=== PATIENT | female | born 1995 | race Caucasian/White ===

== ENCOUNTER 2024-03-12 15:36 | Outpatient (CLI) | payer OTHER, SELFPAY ==
--- NOTE | ~2024-03-12 | US_ITS ---
EXAMINATION: US OB <= 14 weeks fetus DATE: 03/12/2024 16:35 INDICATION: Amenorrhea TECHNIQUE: Real-time pelvic ultrasound utilizing both a transvaginal and transabdominal probe was pe rformed. The interpreting radiologist was not present for the study. COMPARISON: None. FINDINGS: The uterus measures 14.0 x 9.6 x 9.5 cm. There is an intrauterine gestational sac. A yolk sac and fe sindy pole are identified. The crown rump length measures 5.7, which correlates with an estimated gesta tional age of 12 weeks and 2 days. heart motion is identified measuring 161 beats per minute (b pm) by M-mode Doppler. The right ovary measures 2.7 x 1.3 x 1.8 cm. The left ovary measures 3.6 x 1.9 x 2.8 cm. There is no free fluid in the pelvis. IMPRESSION: 1. Single living fetus with heart rate of 161 bpm. 2. Gestational age by ultrasound of 12 weeks 2 day(s) +/- 1 week and 1 day with ultrasound estimated date of delivery (EDUARDO) of 09/22/2024. Reviewed, dictated and finalized at location A. IMPRESSION: 1. Single living fetus with heart rate of 161 bpm. 2. Gestational age by ultrasound of 12 weeks 2 day(s) +/- 1 week and 1 day wit h ultrasound estimated date of delivery (EDUARDO) of 09/22/2024.
== END 2024-03-12 15:37 | disposition home or self-care (01) ==
PROVIDERS: PCP Internal Medicine; Visit Provider Student in an Organized Health Care Education/Training Program
DX: N94.89 Other specified conditions associated with female genital organs and menstrual cycle (principal); Z3A.12 12 weeks gestation of pregnancy
CPT/HCPCS: 76801

== ENCOUNTER 2024-04-30 15:07 | Outpatient (CLI) | payer OTHER, SELFPAY ==
--- NOTE | ~2024-04-30 | US_ITS ---
EXAMINATION: US_OBFEMATADD_US DATE: 04/30/2024 16:43 INDICATION: . anatomic survey. TECHNIQUE: Real-time ultrasound of the pelvis was performed. COMPARISON: Ultrasound 03/12/2024 FINDINGS: There is a single living fetus in vertex presentation. The placenta is anterior, 2.0 cm from the cer vix. heart rate is 147 beats per minute (bpm). The amniotic fluid index is 13.8 cm, which is no rmal. The following biometric data were obtained: Biparietal diameter (BPD): 4.3 cm; head circumference (HC): 16.0 cm; abdominal circumference (AC): 14 .4 cm; femur length (FL): 3.0 cm. These measurements are concordant. Estimated weight is 294 g +/- 44 g, which correlates with the 56th percentile when 09/22/24 is u sed as estimated date of delivery. As single measurements, these parameters are each equal to the following estimated gestational ages: BPD: 18 weeks 6 days. HC: 18 weeks 6 days. AC: 19 weeks 5 days. FL: 19 weeks 3 days. estimated gestational age based solely on measurements from this exam is 19 weeks 2 days +/- 1 weeks 2 days. The cerebral ventricles, cerebellum, cisterna magna, nuchal fold, and spine are normal. There is an i ntracardiac echogenic focus. The diaphragm, stomach, kidneys, and bladder are normal. There are two u mbilical arteries to yield a 3-vessel cord. The cord insertion is normal. IMPRESSION: 1. Single living fetus in vertex presentation. 2. Estimated weight is 294 g +/- 44 g, which correlates with the 56th percentile when 09/22/24 is used as estimated date of delivery. This date was set by ultrasound on 03/12/2024. 3. Intracardiac echogenic focus. 4. Placenta 2.0 cm from the cervix, which is borderline for low-lying placenta. Reviewed, dictated and finalized at location A. LLMENT SPECIALIST IMPRESSION: 1. Single living fetus in vertex presentation. 2. Estimated weight is 294 g +/- 44 g, which correlates with the 56th rcentile when 09/22/24 is used as estimated date of delivery. This date was set by ultrasound on 03/12/2024. 3. Intracardiac echogenic focus. 4. Placenta 2.0 cm from the cervix, which is borderline for low-lying placenta.
== END 2024-04-30 15:08 | disposition home or self-care (01) ==
LOC: ANHIMG 15:09
PROVIDERS: Visit Provider Student in an Organized Health Care Education/Training Program
DX: N94.89 Other specified conditions associated with female genital organs and menstrual cycle (principal)
CPT/HCPCS: 76810

== ENCOUNTER 2024-08-10 15:05 | Outpatient (CLI) | payer OTHER, SELFPAY ==
--- NOTE | ~2024-08-10 | US_ITS ---
EXAM EXAMINATION: US OB follow up DATE: 08/10/2024 22:21 CDT INDICATION: Excessive growth COMPARISON: 04/30/2024 TECHNIQUE: Real-time transabdominal obstetric ultrasound. FINDINGS: 4 para 2 AB 1 Estimated date of delivery by prior ultrasound is 09/22/2024 Gestational age by estimated date of delivery is 33 weeks and 6 days There is a single intrauterine gestation in vertex presentation. The placenta is anterior, approximately 6 cm from the cervix. cardiac activity and movement is noted with a heart rate of 134 beats per minute. The following biometric data were obtained: Biparietal diameter (BPD): 8.5 cm; head circumference (HC): 32.1 cm; abdominal circumference (AC): 31.3 cm; femur length (FL): 6.5 cm. These measurements are concordant. Estimated weight is 2496 g +/- 374 g, which correlates with the 69th percentile when 09/16/2024 i s used as estimated date of delivery. As single measurements, these parameters are each equal to the following estimated gestational ages: BPD: 34 weeks 2 days. HC: 36 weeks 1 day. AC: 35 weeks 1 day. FL: 33 weeks 2 days. estimated gestational age based solely on measurements from this exam is 34 weeks 5 days +/- 2 weeks 3 days. IMPRESSION: Single intrauterine gestation in vertex presentation with cardiac activity identified. Estimated weight correlates with the 69th percentile when 09/16/2024 is used as estimated date of delivery Reviewed, dictated and finalized at location A. IMPRESSION: Single intrauterine gestation in vertex presentation with cardiac activit y identified. Estimated weight correlates with the 69th percentile when 09/16/2024 is use d as estimated date of delivery
--- OUTSIDE RECORDS SUMMARY | 2024-08-10 16:41 | XMS_ITS | Clinical Summary ---
Author Organization [address] Address [address] [facility] [place] [address] Care Team Providers Care Mortician Helper Name Role Phone Palmira Lai MD Primary Care Provider [phone] Allergies No known active allergies Medications No known medications Active Problems No known active problems Social History Tobacco Use Types Packs/Day Years Used Date Smoking Tobacco: Never Assessed Comments Unknown Sex and Gender Information Value Date Recorded Sex Assigned at Not on file Legal Sex Female 10:04 PM CDT Gender Identity Not on file Sexual Orientation Not on file Obstetrics History Last Filed Vital Signs Vital Sign Reading Time Taken Comments Blood Pressure 124/62 09/01/2023 3:06 PM CDT Pulse 110 09/01/2023 3:06 PM CDT Temperature 37.2 C (98.9 F) 09/01/2023 3:06 PM CDT Respiratory Rate 18 09/01/2023 3:06 PM CDT Oxygen Saturation 98% 09/01/2023 3:06 PM CDT Inhaled Oxygen Concentration - - Weight 79.8 kg (176 lb) 09/01/2023 3:06 PM CDT Height 162.6 cm (5' 4 ) 09/01/2023 3:06 PM CDT Body Mass Index 30.21 09/01/2023 3:06 PM CDT Plan of Treatment Health Maintenance Due Date Last Done Comments Cervical Cancer Screening 1996 Depression Screening 1996 Hepatitis C Screening 1996 DTaP/Tdap/Td Vaccine (1 - Tdap) 01/09/2007 Varicella Vaccines (1 of 2 - 13+ 2-dose series) 01/09/2009 Hepatitis B Screening 01/09/2014 Regular Well Visit/Exam 18-64 01/09/2014 Influenza Vaccine (#1) 2024 HPV Vaccines Aged Out No longer eligi ble based on patient's age to complete this topic Pneumococcal vaccine <65 Aged Out No longer eligible based on patient's age to complete this topic Insurance [employer] OOS Care Teams Mortician Helper Relationship Specialty Start Date End Date Palmira Lai MD [address] [place] [address] PCP - General Internal Medicine 09/01/23
--- OUTSIDE RECORDS SUMMARY | 2024-08-10 16:41 | XMS_ITS | Referral Summary ---
Author Organization [address] Address [address] [place] [address] [place] [address] Care Team Providers Care Vp Genetic Name Role Phone Palmira Lai MD Primary Care Provider [phone] Allergies No known active allergies Medications No known medications Active Problems No known active problems Social History Tobacco Use Types Packs/Day Years Used Date Smoking Tobacco: Never Assessed Comments Unknown Sex and Gender Information Value Date Recorded Sex Assigned at Not on file Legal Sex Female 10:04 PM CDT Gender Identity Not on file Sexual Orientation Not on file Last Filed Vital Signs Vital Sign Reading [...] 09/01/2023 3:06 PM CDT Plan of Treatment Not on file Insurance [email or web address] OOS Member Subscriber Plan / Payer (Ef fective 2023-Present) Name:John Naayk Relation to Subscriber:Spouse Name:Dieudonne Nayak Date of :1992 (Home) Address: [address] [place] [address] Payer ID:[id number] (NAIC) Type:BC ALLIANCE Address: [facility] [id number] [id number] Care Teams Vp Genetic Relationship Specialty Start Date End Date Palmira Lai MD [address] [place] [address] PCP - General Internal Medicine 09/01/23
--- OUTSIDE RECORDS SUMMARY | 2024-08-10 16:41 | XMS_ITS | Clinical Summary ---
Author Organization [facility] Address [address] [facility] [place] [address] Care Team Providers Care Store Keeper Name Role Phone Palmira Lai MD Primary Care Provider [phone] Source Comments [facility]-owned [facility] and Associated Physician Practices is amultiple site organization consisting of ambulatory clinics and hospital sitesin [place], [place], [place] and [place]. This disclosure is being madepursuant to the Care Everywhere program and may not contain all information available regarding this patient. Last updated 18.[facility] Allergies No known active allergies Medications * Be aware that medications may not be up to date on this document. Alwaysverify current medications with the patient. Medication Sig Dispensed Refills Start Date End Date Status norethindrone-ethinyl estradiol (NORTREL 135, 21,) 1-35 MG-MCG tablet Take 1 tablet by mouth once daily Active escitalopram (LEXAPRO) 5 MG tablet Take 5 mg by mouth once daily Active Active Problems Estimated Date of Delivery Comme nts Yes 09/22/2024 Based on Patient Reported No known active problems Encounters Date Type Department Care Team Description 06/08/2024 2:30 PM SR. PAYROLL MANAGER - 06/08/2024 11:59 PM SR. PAYROLL MANAGER Hospital Encounter [facility] [address] [place] [address] [id number] Clarissa Judge MD Discharge Disposition: Home or Self Care 05/18/2024 Telephone [facility] [address] [place] [address] [phone] Wilcox, Digna M, RN Results (NIPT) from Last 3 Months Family History Medical History Relation Name Comments None Known Father None Known Mother Negative Family History Other Relation Name Status Comments Father Alive Mother Alive Other Social History Tobacco Use Types Packs/Day Years Used Date Smoking Tobacco: Never Smokeless Tobacco: Never Tobacco Cessation:Counseling Given: Not Answered Alcohol Use Standard Drinks/Week Comments No 0 (1 standard drink = 0.6 oz pur e alcohol) Estimated Date of Delivery Comme nts Yes 09/22/2024 Based on Patient Reported Sex and Gender Information Value Date Recorded Sex Assigned at Not on file Gender Identity Not on file Sexual Orientation Not on file Last Filed Vital Signs Vital Sign Reading Time Taken Comments Blood Pressure 120/81 10/08/2023 12:20 PM CDT Pulse 64 10/08/2023 12:20 PM CDT Temperature 36.4 C (97.6 F) 10/08/2023 12:20 PM CDT Respiratory Rate 18 04/29/2019 10:34 AM SR. PAYROLL MANAGER Oxygen Saturation 99% 10/08/2023 12:20 PM CDT Inhaled Oxygen Concentration - - Weight 78.5 kg (173 lb) 10/08/2023 12:20 PM CDT Height 162.6 cm (5' 4 ) 10/08/2023 12:20 PM CDT Body Mass Index 29.7 10/08/2023 12:20 PM CDT Plan of Treatment Health Maintenance Due Date Last Done Comments PAP SMEAR 1996 HIV SCREENING 01/09/2011 DTAP/TDAP/TD VACCINES (1 - Tdap) 01/09/2015 HEPATITIS B VACCINE (1 of 3 - 19+ 3-dose series) 01/09/2015 COVID-19 VACCINE ( - 2023-2 5 season) 2024 INFLUENZA VACCINE (#1) 2024 03/12/2020 DEPRESSION SCREENING 05/12/2024 OB-ONE HOUR GLUCOSE 06/16/2024 OB-TDAP CURRENT 06/23/2024 OB-RHOGAM INJECTION 06/30/2024 OB-GROUP B STREP SCREEN 08/18/2024 ZOSTER VACCINE (1 of 2) 01/09/2046 HEPATITIS C SCREENING Completed 07/16/2023 HIB VACCINE Aged Out No longer eligi ble based on patient's age to complete this topic HPV VACCINE Aged Out No longer eligi ble based on patient's age to complete this topic MENINGOCOCCAL (Group B) VACC INE SHARED DECISION-MAKING Aged Out No longer eligibl e based on patient's age to complete this topic MENINGOCOCCAL GROUPS A/C/Y/W VACCINE Aged Out No longer eligible b ased on patient's age to complete this topic PNEUMOCOCCAL VACCINE Aged Out No long er eligible based on patient's age to complete this topic Respiratory Syncytial Virus (RSV) Vaccine Pt: or over 60 yrs (No Doses Required) Completed Procedures Procedure Name Priority Date/Time Associated Diagnosis Comments SONOGRAM - COMPLETE Routine 06/08/2024 2:42 PM SR. PAYROLL MANAGER Fourth Encounter for follow-up ultrasound of anatomy Echogenic intracardiac focus of fetus on ultrasound Encounter for ultrasound to assess growth 24 weeks gestation of from Last 3 Months Results * SONOGRAM - COMPLETE (06/08/2024 2:42 PM SR. PAYROLL MANAGER) Linked Results Indication ======== Incomplete Anatomy Screen History ====== OB History 4. Para 2 [id number] 1. live . Gest. age 39 w + 0 d. Weight 3,220 g. Sex of child: female. Details: Vaginal delivery 2. missed 3. live . Gest. age 39 w + 0 d. Weight 3,311 g. Sex of child: female. Details: Vaginal delivery Lab Tests Test Date Result NIPT Low risk Maternal Assessment Physical Exam Height 165 cm, 5 ft 5 in. Initial weight 74 kg, 163 lb. Initial BMI 27.12 kg/m Method ====== Transabdominal ultrasound. View: Good view ========= Torres . Number of fetuses: 1 Dating ====== Date Details Gest. age EDUARDO Stated EDUARDO 24 w + 6 d 09/22/2024 U/S 06/08/2024 based upon AC, BPD, Femur, HC 25 w + 5 d 09/16/2024 Assigned dating based on stated EDUARDO, selected on 05/11/2024 24 w + 6 d 09/22/2024 General Evaluation Cardiac activity present. FHR 148 bpm. Presentation: cephalic Placenta: Placental site: anterior Amniotic fluid: Amount of AF: normal. MVP 6.6 cm Biometry BPD 61.9 mm 25w 1d 52% Hadlock HC 230.6 mm 25w 1d 37% Hadlock AC 222.7 mm 26w 5d 90% Hadlock Femur 47.7 mm 26w 0d 71% Hadlock Humerus 40.7 mm 24w 5d 34% Mauricio HC / AC 1.04 -/- Hadlock Weight Calculation: EFW 903 g 91% Hadlock EFW (lb,oz) 2 lb 0 oz EFW by Hadlock ([id number]) accelerated Growth Overview Exam date GA BPD (mm) HC (mm) AC (mm) FL (mm) HL (mm) EFW (g) 05/11/2024 20w 6d 49.6 56% 182.3 30% 160.9 55% 34.5 41% 31.2 29% 392 52% 06/08/2024 24w 6d 61.9 52% 230.6 37% 222.7 90% 47.7 71% 40.7 34% 903 91% Anatomy The following structures appear normal: Head / Neck Cranium. Heart / Thorax 4-chamber view. 9-wyoqmu-kbutuuv view. Abdomen Stomach. Kidneys. Bladder. The following structures were documented previously: Head / Neck Lateral ventricles. Choroid plexus. Midline falx. Cavum septi pellucidi. Cerebellum. Cisterna magna. Face Lips. Profile. Nose. Orbits. Heart / Thorax RVOT view. LVOT view. 3-vessel view. Situs. Aortic arch view. Bicaval view. Ductal arch view. Interventricular septum. Great vessels. Right lung. Left lung. Diaphragm. Abdomen Cord insertion. Genitals. Spine Cervical spine. Thoracic spine. Lumbar spine. Sacral spine. Extremities / Skeleton Arms. Hands. Legs. Feet. sex: male. Impression ========= Single, live, intrauterine at 24w 6d size appears accelerated Amniotic fluid volume: normal No major malformations were seen within the limitations of ultrasound Follow-up ======== Growth US in 4-6 weeks, or as clinically indicated. Correlate maternal glucose screening with growth. Coding ====== Procedures [id number]: US Preg Uterus Follow Up [place] PACS Anatomical Region Laterality Modality Other 06/08/2024 2:42 PM SR. PAYROLL MANAGER Rosendo Giordano MD [facility] ORDERABLES from Last 3 Months Care Teams Store Keeper Relationship Specialty Start Date End Date Palmira Lai MD [address] [facility] [address] [place] [id number] PCP - General Internal Medicine 07/22/23
== END 2024-08-10 15:06 | disposition home or self-care (01) ==
PROVIDERS: PCP Internal Medicine; Visit Provider Obstetrics & Gynecology
DX: O36.60X0 Maternal care for excessive fetal growth, unspecified trimester, not applicable or unspecified (principal)
CPT/HCPCS: 76816

== ENCOUNTER 2024-09-18 11:33 | Inpatient (IN) | payer OTHER, SELFPAY ==
[2024-09-18] VITALS (119 sets, daily range): BP systolic 80–133; BP diastolic 34–99; PULSE 55–142; TEMP 36.5–36.8; O2SAT 93–100; BMI 32.5
--- OUTSIDE RECORDS SUMMARY | 2024-09-18 11:36 | XMS_ITS | Clinical Summary ---
Author Organization [facility] Address [address] [facility] [place] [address] Care Team Providers Care Heating Mechanic Name Role Phone Palmira Lai MD Primary Care Provider [phone] Source Comments [facility],non-owned Affiliates and Associated Physician Practices is amultiple site organization consisting of ambulatory clinics and hospital sitesin [place], [place], [place] and [place]. This disclosure is being madepursuant to the Care Everywhere program and may not contain all information available regarding this patient. Last updated 18.[facility] Allergies No known active allergies Medications * Be aware that medications may not be up to date on this document. Alwaysverify current medications with the patient. norethindrone-et hinyl estradiol (NORTREL 1/35, 21,) 1-35 MG-MCG tablet Take 1 tablet by mouth once daily Active escitalopram (LEXAPRO) 5 MG tablet Take 5 mg by mouth once daily Active Active Problems Estimated Date of Delivery Comme nts Yes 09/22/2024 Based on Patient Reported No known active problems Family History Medical History Relation Name Comments [...] at Not on file Legal Sex Female 9:10 AM CDT Gender Identity Not on file Sexual Orientation Not on file Last Filed Vital Signs Vital Sign Reading Time Taken Comments Blood Pressure 120/81 10/08/2023 12:20 PM CDT Pulse 64 10/08/2023 12:20 PM CDT Temperature 36.4 C (97.6 F) 10/08/2023 12:20 PM CDT Respiratory Rate 18 04/29/2019 10:34 AM QUILLER OPERATOR Oxygen Saturation 99% 10/08/2023 12:20 PM CDT [...] VACCINE ( - 2023-2 5 season) 2024 DEPRESSION SCREENING 05/12/2024 OB-ONE HOUR GLUCOSE 06/16/2024 OB-TDAP CURRENT 06/23/2024 OB-RHOGAM INJECTION 06/30/2024 OB-GROUP B STREP SCREEN 08/18/2024 INFLUENZA VACCINE (Season Ended) 2025 03/12/20 ZOSTER VACCINE (1 of 2) 01/09/2046 HEPATITIS [...] over 60 yrs (No Doses Required) Completed Insurance Care Teams Heating Mechanic Relationship Specialty Start Date End Date Palmira Lai MD [address] [id number] PCP - General Internal Medicine 07/22/23
--- OUTSIDE RECORDS SUMMARY | 2024-09-18 11:36 | XMS_ITS | Referral Summary ---
Author Organization [address] Address [address] [place] [address] [place] [address] Care Team Providers Care Net Developer Contract Name Role Phone Palmira Lai MD Primary Care Provider [phone] Allergies No known active allergies Medications No [...] Plan of Treatment Not on file Insurance [employer] OOS Member Subscriber Plan / Payer (Ef fective 2023-Present) Name:John Nayak Relation to Subscriber:Spouse Name:Dieudonne Nayak Date of :1992 (Home) Address: [address] [place] [address] Payer ID:[id number] (NAIC) Type:BC ALLIANCE Address: [facility] [address] [place] [id number] Care Teams Net Developer Contract Relationship Specialty Start Date End Date Palmira Lai MD [address] [place] [address] PCP - General Internal Medicine 09/01/23
--- OUTSIDE RECORDS SUMMARY | 2024-09-18 11:36 | XMS_ITS | Clinical Summary ---
Author Organization [address] Address [address] [place] [address] Care Team Providers Care Physician Ophthalmologist Name Role Phone Palmira Lai MD Primary Care Provider [phone] Allergies No known active allergies Medications No [...] Regular Well Visit/Exam 18-64 01/09/2014 Influenza Vaccine (Season Ended) 2025 HPV Vaccines Aged Out No longer eligi ble based on patient's age to complete this topic Pneumococcal vaccine <65 Aged Out No longer eligible based on patient's age to complete this topic Insurance [employer] OOS Care Teams Physician Ophthalmologist Relationship Specialty Start Date End Date Palmira Lai MD [address] [place] [address] PCP - General Internal Medicine 09/01/23
--- NOTE | 2024-09-18 12:21 | LDADM ---
This patient, John Nayak, was admitted to Labor/Delivery/Recovery 107 on 09/18/24 at 11:33. Plans for labor, pain management and were discussed with patient. Patient/family oriented to hospital policies and general routines including ID bracelet, bed and alarms, visiting hours, pain management, procedures, bathroom and other care routines, personal items, smoking policy, room service/diet and guest tray routines, security routines, and visiting hours. Patient/Family are encouraged to report perceived risks to care and to ask questions if they do not understand what they are told or what they should do. See OBIX for further documentation.
[2024-09-18 13:05] LABS: Basophils Absolute Auto 0.1 K/mm3 (0.0-0.1); Basophils Percent Auto 0.5 % (0.2-1.2); Eosinophils Percent Auto 0.4 % (0-4.4); Hematocrit 36.9 % (37.0-47.0); Immature Granulocyte Absolute 0.05 K/mm3 (0.00-0.031); Immature Granulocyte Percent A 0.5 % (0-0.5); Lymphocytes Absolute Auto 2.07 K/mm3 (0.9-3.2); Lymphocytes Percent Auto 21.3 % (18.3-44.2); Mean Corpuscular HGB Conc 32.5 g/dl (32-36); Mean Corpuscular Hemoglobin 29.6 pg (26-34); Mean Corpuscular Volume 91.1 fl (80-100); Mean Platelet Volume 10.5 fl (7.4-10.4); Monocytes Absolute Auto 0.9 K/mm3 (0.1-0.6); Neutrophils Absolute Auto 6.6 K/mm3 (1.3-6.7); Neutrophils Percent Auto 68.3 % (45.5-73.1); Platelet Count Result 247 k/mm3 (150-375); Red Blood Count 4.05 M/mm3 (4.2-5.4); Red Cell Distribution Width 13.2 % (11.5-14.5); White Blood Count 9.7 K/mm3 (4.5-10.0)
[2024-09-18] MEDS: LACTATED RINGERS 1,000 ML 125 ML IV CONT ×2 (13:13→16:19)
[2024-09-18] MEDS: OXYTOCIN 30 UNITS/NS 500 ML 30 UNITS/500 ML BAG IV CONT (13:14)
--- NOTE | 2024-09-18 13:39 | P.HP_ITS ---
H&P: HPI History of Present Illness Date/Time: 09/18/24 13:15 Chief Complaint: induction of labor Narrative: John is a 29yo @ 39.3wks who presents for elective IOL. She has had regular care. She reports good movement. No VB or LOF. Her is complicated by: - Depression; tamiko 10 - EIF...has seen MFM and no issues. Review of Systems Constitutional: Constitutional: Denies chills, Denies fever(s) and Denies headache(s) Eyes: Eyes: Denies change in vision ENT: Denies headache(s) Cardiovascular: Cardiovascular: Denies chest pain and Denies dyspnea Respiratory: Respiratory: Denies dyspnea Genitourinary: Genitourinary: Denies abnormal vaginal bleeding and Denies vaginal discharge Neurologic: Denies headache(s) Psychiatric: Psychiatric: Denies anxiety and Denies depression [facility] Past Medical History Medical History Suppression of menses Social History Social History Smoking status: Never smoker Alcohol intake: former Substance use: never Substance use type: does not use Do You Feel Safe in your Home?: Yes Lack of Transportation: No Lack of Food: Never True Current Housing: I Have Housing Concerned About Future Housing: No Difficulty Paying Gas/Electric Bills: No Difficulty Paying for Meds: No Currently Unemployed: No Education: High School Diploma/GED Difficulty w/ Childcare or Family Care: No Living arrangements: with family Occupation/Education: unemployed Additional occupation/education comments: homemaker Gender identity (if verbalized by the patient): Female Sexual Orientation (if Verbalized by the Patient): Straight or Heterosexual Spiritual care concerns: No Meds Home Medications and Allergies Home Medications ?Medication ?Instructions ?Recorded ?Confirmed ?Type vits no.126-ferrous fum 1 tablet PO .qd #30 tabs 07/29/24 09/13/24 Rx 28 mg iron-folic acid 800 mcg tablet (Classic ) calcium carbonate (Tums) 200 mg PO BID 08/27/24 09/13/24 History ferrous sulfate 325 mg (65 mg 325 mg PO DAILY 08/27/24 09/13/24 History iron) tablet (Feosol) Allergies Allergy/AdvReac Type Severity Reaction Status Date / Time No Known Allergies Allergy Verified 09/13/24 13:25 Exam Const: General: cooperative, no acute distress and obese Nutritional Appearance: obese Orientation/consciousness: patient oriented x3 Resp: Effort & Inspection: normal respiratory effort Cardio: Rate: regular rate GI: GI Palp: No abdominal tenderness : Other: FHT's: 140's/ mod nahomi/ + accels/ no decels - cat 1 TOCO: irregular ctxs Cervix: 4/50/-3 Membranes: AROM, scant 1330 Presentation: cephalic Skin: General skin exam: normal color Neuro: General: patient oriented x3 Extrem: General: normal to inspection Psych: Appearance: grossly normal Affect: normal affect Attitude: cooperative Assessment and Plan Assessment and plan (1) Encounter for elective induction of labor: Code(s): Z34.90 - Encounter for supervision of normal , unspecified, unspecified trimester Status: Acute Plan - Admitted for elective induction of labor; risks and benefits discussed - AROM, clear @ _ - Low dose pitocin per protocol - Continuous monitoring - GBS neg - Anesthesia consult PRN pain
[2024-09-18 13:45] LABS: Syphilis IgG/IgM Antibody Negative (Negative)
[2024-09-18 13:59] LABS: HIV 1/2 Ab P24 Ag Result Negative (Negative)
--- NOTE | 2024-09-18 21:00 | PM.OBPRVD ---
OB - Vaginal Delivery Note Procedure Delivery date: 09/18/24 Events: Elective Induction of Labor Induction method: Per Pitocin Protocol Delivery augmentation: Rupture of Membranes Delivery monitor: External FHT and Internal Uterine Route of delivery: Episiotomy description: None Laceration Description: None Specimen: Yes (placenta) Quantitative Blood Loss (ml): 200 Anesthesia type: Epidural Disposition: Floor Complications: No immediate complications Baby Date of : 09/18/24 Time of : 20:50 Gestational Age by Date: 39 (.3) gender: Male presentation: vertex position: Left Occiput Anterior Placenta delivery description: Expressed Cord Vessel Description: 3 Vessels, Nuchal Cord, Loose, Reduced and Delayed Cord Clamping score one minute: 8 score five minutes: 9 Narrative: John rapidly progressed from 6 cm to completely dilated with strong desire to push. She pushed for 2 contractions and delivered the head over intact perineum. Nuchal cord was noted and easily reduced. She easily delivered the 's shoulders and body without complication. The infant was immediately placed skin to skin in his mouth and nose were bulb suction. Delayed cord clamping was performed. The umbilical cord was then doubly clamped and cut. A segment of the cord was collected for cord gases. Remaining cord blood was collected for typing. Brisk bleeding was then noted but with Pitocin running and gentle downward traction on the cord, the placenta delivered without complication. Bimanual massage was performed and good uterine tone with minimal bleeding was noted. She was examined and no lacerations were identified. Sponge, lap, instrument, and needle counts were correct at the end the procedure. Mom and baby were left bonding birthing suite in stable condition.
[2024-09-18] MEDS: OXYTOCIN 30 UNITS/NS 500 ML 30 UNITS/500 ML BAG 125 UNITS IV CONT (21:20)
[2024-09-18] MEDS: WITCH HAZEL 40 PADS 1 PAD TOPICAL (23:12)
[2024-09-18] MEDS: BENZOCAINE 20% AER SPR (*SP) 56 GM CAN 1 SPRAY TOPICAL (23:12)
[2024-09-19 00:01] VITALS: BP 112/50; PULSE 82
[2024-09-19 00:23] VITALS: BP 121/72; PULSE 71; RESP 16; TEMP 36.4; O2SAT 100
[2024-09-19] MEDS: IBUPROFEN 600 MG TABLET PO ×2 (00:40→07:51)
--- NOTE | 2024-09-19 02:28 | OBPPTRN ---
09/19/2024 at 0018 Patient transferred to post room #283. Support person and patient oriented to unit, room, information board, rooming in, admission packet and security measures. Patient and her significant other verbalizes understanding.
[2024-09-19 04:45] VITALS: BP 111/72; PULSE 75; RESP 16; TEMP 36.7; O2SAT 98
[2024-09-19 05:35] LABS: Hematocrit 34.6 % (37.0-47.0); Hemoglobin 11.4 g/dL (12.0-15.0); Mean Corpuscular HGB Conc 32.9 g/dl (32-36); Mean Corpuscular Hemoglobin 30.2 pg (26-34); Mean Corpuscular Volume 91.5 fl (80-100); Mean Platelet Volume 10.8 fl (7.4-10.4); Platelet Count Result 203 k/mm3 (150-375); Red Blood Count 3.78 M/mm3 (4.2-5.4); Red Cell Distribution Width 13.2 % (11.5-14.5); White Blood Count 16.3 K/mm3 (4.5-10.0)
[2024-09-19 07:45] VITALS: BP 114/74; PULSE 77; RESP 16; TEMP 37.1; O2SAT 98
[2024-09-19] MEDS: MULTIVIT/MIN/PREN/FOL AC/IRON TABLET 1 TAB PO (07:51)
[2024-09-19] MEDS: DOCUSATE SODIUM 100 MG CAPSULE PO ×2 (07:51→17:27)
--- NOTE | 2024-09-19 08:40 | P.PNOB_ITS ---
OB - PN: Subj Subjective Date/time seen: 09/19/24 08:40 Patient comments: no complaints, pain well controlled and tolerating diet [place] feeding status: exclusively breast feeding Narrative: patient doing well this AM. No complaints. Pain is well controlled. She reports minimal bleeding. She is ambulating and voiding without difficulty. She is tolerating PO. She denies N/V, fever, chills. OB - PN: Obj Data Labs 09/19/24 04:45 Labs: Laboratory Results - last 24 hr 09/18/24 09/19/24 11:53 04:45 WBC 9.7 16.3 H RBC 4.05 L 3.78 L Hgb 12.0 11.4 L Hct 36.9 L 34.6 L MCV 91.1 91.5 MCH 29.6 30.2 MCHC 32.5 32.9 RDW 13.2 13.2 Plt Count 247 203 MPV 10.5 H 10.8 H Immature Gran % (Auto) 0.5 Neut % (Auto) 68.3 Lymph % (Auto) 21.3 [place] % (Auto) 9.0 H Eos % (Auto) 0.4 Baso % (Auto) 0.5 Lymph # (Auto) 2.07 [place] # (Auto) 0.9 H Eos # (Auto) 0.0 Baso # (Auto) 0.1 Abs Immat Gran (auto) 0.05 H Absolute Neuts (auto) 6.6 Absolute Nucleated RBC 0.000 Nucleated RBC % 0.0 Syphilis IgG/IgM Ab Negative HIV 1&2 Ab/P24 Ag 4thGn Negative Blood Type A Positive Antibody Screen Negative OB - PN A/P Plan day: 1 Plan: routine care Comments: patient doing well H/H stable continue routine care Time Spent With Patient Time: Total time spent is greater than 50% in coordination of care (as documented) at patient's floor/unit and/or counseling patient: Time with patient: less than 15 minutes Review of Systems 2 Review of Systems: All systems reviewed & are unremarkable except as noted in HPI and below Exam 2 Const: General: comfortable and no acute distress Resp: Effort & Inspection: normal respiratory effort Cardio: Rate: regular rate GI: GI Palp: Yes Soft to palpation and No Tenderness to palpation present (GI) Auscultation: normal bowel sounds Other: fundus firm and below umbilicus. Psych: Affect: normal affect
[2024-09-19] MEDS: ACETAMINOPHEN 325 MG TABLET 650 MG PO (13:14)
--- NOTE | 2024-09-19 14:05 | WPDANLDPN2 ---
Anes-Prog Note L&D Date/Time: 09/19/24 14:05 Comfortable throughout: labor and delivery Neuraxial method: epidural Epidural/Spinal procedure site: clean & non-tender Neuro status: Neuro function grossly intact. Cardiovascular status: normal Respiratory status: normal Airway patency: baseline Mental status: baseline Post-Op hydration status: normal Vital Signs: Last Vital Signs Temp 37.1 C 09/19/24 07:45 Pulse 77 09/19/24 07:45 Resp 16 09/19/24 07:45 BP 114/74 09/19/24 07:45 Pulse Ox 98 09/19/24 07:45 O2 Del Method Room Air 09/19/24 07:45 Pain score (VAS): 1 I/O: Intake & Output 09/18/24 09/19/24 09/19/24 23:59 07:59 15:59 Intake Total 1000 240 Output Total 200 150 Balance 800 -150 240 Patient feedback: Patient satisfied with anesthetic care.
[2024-09-19 16:10] VITALS: BP 99/60; PULSE 88; RESP 16; TEMP 36.9; O2SAT 98
[2024-09-19 20:10] VITALS: BP 112/64; PULSE 99; RESP 16; TEMP 36.3; O2SAT 98
--- NOTE | 2024-09-20 07:33 | PM.OBDSVD ---
DS: Admitting Diagnosis Discharge Date 09/20/24 Admitting Diagnosis Elective IOL DS: Discharge Diagnosis Discharge Diagnosis (1) Normal vaginal delivery: Code(s): O80 - Encounter for full-term uncomplicated delivery Status: Acute OB - DS: Summary OB Procedures : Ultrasound OB Procedures Intrapartum: Spontaneous Vag Delivery OB Procedures: : None Peripartum Data Delivery Method: Natural Vaginal Laceration Description: None Episiotomy description: None complications: none [place] 1: Gender: Male Disposition of : home Status at Discharge Functional status at discharge: independent ambulation Overall status at discharge: patient is back to baseline Time Spent with Patient Time attestation: Total time spent providing and/or coordinating discharge services: Exam Const: General: cooperative, comfortable and no acute distress Orientation/consciousness: patient oriented x3 Resp: Effort & Inspection: normal respiratory effort Auscultation: clear to auscultation bilaterally Cardio: Rate: regular rate GI: Inspection: non-distended GI Palp: No abdominal tenderness and Yes Soft to palpation Auscultation: normal bowel sounds : Other: fundus firm Skin: General skin exam: normal color Neuro: General: patient oriented x3 Extrem: General: normal to inspection Psych: Appearance: grossly normal Affect: normal affect Attitude: cooperative Discharge Plan Discharge Attending physician on discharge: Juani Ceja Discharging Clinician: Juani Ceja Anticipated Discharge Date/Time: 09/20/24 11:00 Patient Disposition: Home Activity: may shower and pelvic rest Diet: regular Patient Instructions: Antibiotic Form Patient Language: Azeri Stand Alone Forms: General Discharge Information Follow-up/Referrals: Juani Ceja MD [Physician] - 4 Weeks Discharge Medications: New acetaminophen 325 mg Tablet 650 mg PO Q6H PRN (Reason: Mild Pain (1-3) Or Headache) Qty: 60 0RF docusate sodium 100 mg Capsule 100 mg PO BID PRN (Reason: Constipation) Qty: 90 0RF ibuprofen 600 mg Tablet 600 mg PO Q6H PRN (Reason: Cramping) Qty: 40 0RF Continued ferrous sulfate [Feosol] 325 mg (65 mg iron) tablet 325 mg PO DAILY calcium carbonate [Tums] 200 mg calcium (500 mg) tablet,chewable 200 mg PO BID Classic 28 mg iron- 800 mcg tablet 1 tablet PO .qd Qty: 30 3RF Date of admission: 09/18/24 11:33 Primary Care Provider: Joelle,[place] Admitting Provider: Juani Ceja Attending physician on admission: Juani Ceja Condition: Stable
[2024-09-20 07:45] VITALS: BP 123/72; PULSE 77; RESP 16; TEMP 36.8; O2SAT 98
[2024-09-20] MEDS: MULTIVIT/MIN/PREN/FOL AC/IRON TABLET 1 TAB PO (08:39)
[2024-09-20] MEDS: DOCUSATE SODIUM 100 MG CAPSULE PO (08:39)
--- NOTE | 2024-09-20 09:51 | PCCCNOTE ---
Care Coordination: Recvd consult due to financial resource. Met with pt. and LENNOX Bro at bedside. Pt. reports discharging home today, and states she and baby boy will be living in [place] with Dieudonne, and pt's two daughters (4 yr and 2 yr old). Pt. reports Dieudonne's brother and his brother's child also live in the home. Pt. reports Dieudonne's parents are supportive and assist when needed. Pt. reports having baby supplies. Pt. reports established with [facility], and will follow up with [facility] at discharge. Pt. denies any prior DCFS involvement, or drug use during . and financial resources provided to pt. MILY Schulz aware of visit. No further concerns.
--- NOTE | 2024-09-20 12:15 | PC.NURSE ---
Observed mother with baby latched in the cross cradle position. Mom has very large nipples and baby can't get much breast tissue in his mouth due to the size of the nipple. Mom states that sometimes her nipples are quite painful and other times there is latch on tenderness that gets better as baby feeds. Reviewed keeping baby close to the breast throughout the feeding and to ensure he has the biggest 'bite' possible. Mom does a great job making the bite for baby to latch on to. She did breastfed her first baby. She feels like her milk is in today and that is helping baby to latch better. She has a breast pump at home and is supplementing with formula per her preference. Reviewed standard discharge information with patient including monitoring for required output, transition of stools, feeding 8-12 times every 24 hours, milk production, and follow up at [place] and with news videotape editor in the first week of life. Parents are encouraged to take the feeding log and continue to track feedings and output for the first week . Offered outpatient resources with [facility] referral (faxed to [facility]) and Services at [place]. Patient has the Mom/Baby Guide for further education and reference for common concerns, phone numbers, and guidance on when to call the doctor. A feeding plan was added to the ?s discharge plan. Patient states that she has no further questions or concerns regarding .??
[2024-09-21 08:32] VITALS: BP 115/66; PULSE 88; RESP 18; TEMP 36.9; O2SAT 100
== END 2024-09-20 15:50 | disposition home or self-care (01) | DRG 560 ==
LOC: ANHLDR 11:34 → ANHOB2 09-19 01:25
PROVIDERS: Admitting Provider Obstetrics & Gynecology; PCP Internal Medicine; Visit Provider Obstetrics & Gynecology
DX: O69.81X0 Labor and delivery complicated by cord around neck, without compression, not applicable or unspecified (principal); O99.344 Other mental disorders complicating childbirth; F32.A Depression, unspecified; Z3A.39 39 weeks gestation of pregnancy; Z37.0 Single live birth
CPT/HCPCS: 36415; 85025; 85027; 86593; 86703; 86850; 86900; 86901; 88307; A9270; G0432; J2590; J2795; J7120